=== PATIENT | female | born 1955 | race Caucasian/White ===

== ENCOUNTER 2016-11-27 16:28 | Emergency (ER) | payer OTHER ==
[2016-11-27 18:26] LABS: BASOPHIL % 0.4 % (0-2); PLATELET COUNT 213 x10^3mcL (130-400); RED CELL DISTRIBUTION WIDTH 14.1 % (11.5-14.5)
[2016-11-27 18:28] LABS: CALCIUM 8.9 mg/dL (8.5-10.1); CARBON DIOXIDE 27.2 mmol/L (21-32); CREATININE SERUM 1.2 mg/dL (0.6-1.0); POTASSIUM SERUM 4.1 mmol/L (3.5-5.1)
[2016-11-27 18:33] LABS: ALBUMIN 3.8 g/dL (3.4-5.0); BILIRUBIN TOTAL 0.2 mg/dL (0.20-1.00); TOTAL PROTEIN, SERUM 7.5 g/dL (6.4-8.2)
[2016-11-27 20:53] VITALS: BP 125/77
== END 2016-11-27 20:53 | disposition home or self-care (01) ==
LOC: ED 16:28
DX: S29.011A Strain of muscle and tendon of front wall of thorax, initial encounter (principal); M94.0 Chondrocostal junction syndrome [Tietze]; Z85.3 Personal history of malignant neoplasm of breast; Z90.12 Acquired absence of left breast and nipple; X58.XXXA Exposure to other specified factors, initial encounter; Y93.89 Activity, other specified; Y99.8 Other external cause status; Y92.89 Other specified places as the place of occurrence of the external cause
CPT/HCPCS: 36415; 83880; J1885

== ENCOUNTER 2017-05-19 18:16 | Emergency (ER) | payer OTHER ==
[~2017-05-19] VITALS: Ht 165.1 cm; Wt 69.8 kg
[2017-05-19 18:35] VITALS: Ht 165.1 cm; Wt 69.8 kg
[2017-05-19 20:33] VITALS: BP 106/64
== END 2017-05-19 20:41 | disposition home or self-care (01) ==
LOC: ED 18:16
DX: G47.00 Insomnia, unspecified (principal); F43.20 Adjustment disorder, unspecified

== ENCOUNTER 2017-06-11 00:07 | Inpatient (IN) | payer OTHER ==
[~2017-06-11] VITALS: Ht 152.4 cm; Wt 70.2 kg
[2017-06-11 02:15] LABS: BASOPHIL % 0.2 % (0-2); PLATELET COUNT 153 x10^3mcL (130-400)
[2017-06-11 02:17] LABS: CALCIUM 8.3 mg/dL (8.5-10.1); CHLORIDE SERUM 109 mmol/L (98-107); CREATININE SERUM 1.2 mg/dL (0.6-1.0); GFR1 49 mL/min; GLUCOSE SERUM 148 mg/dL (74-106); POTASSIUM SERUM 3.7 mmol/L (3.5-5.1); SODIUM SERUM 141 mmol/L (136-145)
[2017-06-11 02:22] LABS: ALKALINE PHOSPHATASE 65 U/L (46-116); ALT/SGPT 8 U/L (14-59); AST/SGOT 10 U/L (15-37); BILIRUBIN TOTAL 0.45 mg/dL (0.20-1.00)
[2017-06-11 02:29] LABS: ALBUMIN 2.8 g/dL (3.4-5.0); TOTAL PROTEIN, SERUM 5.8 g/dL (6.4-8.2)
[2017-06-11] MEDS ORDERED: XARELTO10 M1 PO (02:52)
[2017-06-11] MEDS ORDERED: ANASTROZOLE1 M1 PO (02:53)
[2017-06-11] MEDS ORDERED: CARVEDILOL25 M1 PO (02:53)
[2017-06-11] MEDS ORDERED: PAXIL10 MG PO (02:53)
[2017-06-11] MEDS ORDERED: D3-50001 TAB PO (02:53)
[2017-06-11 04:44] LABS: CHOLESTEROL/HDL RATIO 2.8; MAGNESIUM 1.9 mg/dL (1.8-2.4); PHOSPHOROUS 3.4 mg/dL (2.5-4.9)
[2017-06-11 04:52] LABS: FREE T4 1.37 ng/dL (0.76-1.46); FREE THYROXINE INDEX 2.8 ug/dL (1.4-4.5); T4(THYROXINE) 7.2 ug/dL (4.7-13.3)
[2017-06-11 04:55] VITALS: BP 94/50
[2017-06-11 06:42] LABS: T3 TOTAL 0.73 ng/mL
[2017-06-11 07:40] VITALS: BP 85/59
[2017-06-11 07:49] LABS: BASOPHIL % 0.4 % (0-2); PLATELET COUNT 156 x10^3mcL (130-400)
[2017-06-11 07:56] LABS: RED CELL DISTRIBUTION WIDTH 14.7 % (11.5-14.5)
[2017-06-11 08:33] LABS: CALCIUM 8.6 mg/dL (8.5-10.1); CREATININE SERUM 1.2 mg/dL (0.6-1.0); MAGNESIUM 1.9 mg/dL (1.8-2.4); PHOSPHOROUS 2.6 mg/dL (2.5-4.9); POTASSIUM SERUM 3.6 mmol/L (3.5-5.1)
[2017-06-11 12:01] VITALS: BP 93/59
[2017-06-11 17:07] VITALS: BP 92/59
[2017-06-11 19:37] VITALS: BP 70/36
[2017-06-11 23:14] VITALS: BP 96/60
[2017-06-12 03:35] VITALS: BP 78/48
[2017-06-12 05:10] LABS: BASOPHIL % 0.3 % (0-2); PLATELET COUNT 167 x10^3mcL (130-400); RED CELL DISTRIBUTION WIDTH 14.1 % (11.5-14.5)
[2017-06-12 05:36] LABS: CARBON DIOXIDE 24.7 mmol/L (21-32); CREATININE SERUM 1.2 mg/dL (0.6-1.0); MAGNESIUM 1.7 mg/dL (1.8-2.4); PHOSPHOROUS 3.5 mg/dL (2.5-4.9); POTASSIUM SERUM 4.2 mmol/L (3.5-5.1)
[2017-06-12 09:28] VITALS: BP 95/47
[2017-06-12 12:09] VITALS: BP 96/62
[2017-06-12 16:09] VITALS: BP 84/64
[2017-06-12 19:43] VITALS: BP 117/49
[2017-06-12 23:44] VITALS: BP 103/87
[2017-06-13 03:13] VITALS: BP 108/66
[2017-06-13 05:51] LABS: BASOPHIL % 0.4 % (0-2); PLATELET COUNT 154 x10^3mcL (130-400); RED CELL DISTRIBUTION WIDTH 14.3 % (11.5-14.5)
[2017-06-13 06:08] LABS: CALCIUM 7.7 mg/dL (8.5-10.1); CARBON DIOXIDE 25.8 mmol/L (21-32); CREATININE SERUM 1.1 mg/dL (0.6-1.0); POTASSIUM SERUM 4.3 mmol/L (3.5-5.1)
[2017-06-13 09:07] VITALS: BP 91/56
[2017-06-13 14:10] VITALS: BP 100/52
[2017-06-13 17:50] VITALS: BP 99/65
[2017-06-13 20:51] VITALS: BP 95/50
[2017-06-14 04:50] VITALS: BP 82/47
[2017-06-14 05:51] VITALS: BP 95/50
[2017-06-14 05:58] LABS: BASOPHIL % 0.1 % (0-2); PLATELET COUNT 156 x10^3mcL (130-400)
[2017-06-14 07:06] LABS: CARBON DIOXIDE 27.4 mmol/L (21-32); CHLORIDE SERUM 103 mmol/L (98-107); GFR1 > 60 mL/min; GLUCOSE SERUM 98 mg/dL (74-106); MAGNESIUM 1.8 mg/dL (1.8-2.4); PHOSPHOROUS 3.1 mg/dL (2.5-4.9); SODIUM SERUM 139 mmol/L (136-145)
[2017-06-14 09:32] VITALS: BP 92/62
[2017-06-14 13:16] VITALS: BP 127/79
[2017-06-14 15:25] LABS: microscopic required? YES; urine erythrocyte 1+ (NEGATIVE)
[2017-06-14 16:56] VITALS: BP 95/65
[2017-06-14 20:22] VITALS: BP 103/56
[2017-06-15 05:15] VITALS: BP 96/49
[2017-06-15 06:22] LABS: BASOPHIL % 0.4 % (0-2); PLATELET COUNT 151 x10^3mcL (130-400); RED CELL DISTRIBUTION WIDTH 14.1 % (11.5-14.5)
[2017-06-15 06:53] LABS: CALCIUM 8.8 mg/dL (8.5-10.1); CARBON DIOXIDE 29.6 mmol/L (21-32); CHLORIDE SERUM 103 mmol/L (98-107); GFR1 > 60 mL/min; GLUCOSE SERUM 98 mg/dL (74-106); MAGNESIUM 1.8 mg/dL (1.8-2.4); PHOSPHOROUS 3.2 mg/dL (2.5-4.9); POTASSIUM SERUM 4.3 mmol/L (3.5-5.1); SODIUM SERUM 139 mmol/L (136-145)
[2017-06-15 08:53] VITALS: BP 97/53
[2017-06-15] MEDS ORDERED: COR3 PO (09:42)
[2017-06-15] MEDS ORDERED: PAX20 PO (09:43)
[2017-06-15] MEDS ORDERED: LEVAQUIN750 MG PO (09:51)
[2017-06-15 11:56] VITALS: BP 104/77
[2017-06-15 16:35] VITALS: BP 102/64
[2017-06-15 19:24] VITALS: BP 102/64
== END 2017-06-15 20:16 | disposition home or self-care (01) | DRG 917 ==
LOC: ED 00:07 → IC 03:38 → DU 03:38 → IC 04:25 → DU 06-13 08:00
PROVIDERS: Emergency Medicine; Family Medicine; Student in an Organized Health Care Education/Training Program
PROC: 05HP33Z Insertion of Infusion Device into Right External Jugular Vein, Percutaneous Approach (ICD-10-PCS; principal; 2017-06-11)
PROC: B543ZZA Ultrasonography of Right Jugular Veins, Guidance (ICD-10-PCS; 2017-06-11)
DX: T50.992A Poisoning by other drugs, medicaments and biological substances, intentional self-harm, initial encounter (principal); G92 Toxic encephalopathy; E43 Unspecified severe protein-calorie malnutrition; N17.0 Acute kidney failure with tubular necrosis; F33.9 Major depressive disorder, recurrent, unspecified; N13.2 Hydronephrosis with renal and ureteral calculous obstruction; Y92.89 Other specified places as the place of occurrence of the external cause; Z86.73 Personal history of transient ischemic attack (TIA), and cerebral infarction without residual deficits; I48.91 Unspecified atrial fibrillation; I10 Essential (primary) hypertension; Z85.3 Personal history of malignant neoplasm of breast; T14.91XA Suicide attempt, initial encounter; Z68.28 Body mass index [BMI] 28.0-28.9, adult; E83.42 Hypomagnesemia; E66.01 Morbid (severe) obesity due to excess calories
CPT/HCPCS: 36556; 36600; 82962; 83880; 84439; 87491; 87591; 97110-GP; 97116-GP; 97530-GP; G0480; J1160; J1610; J1642; J1815; J1956; J2060; J2270; J2405; J3475; J3490; J7030; J7040; Q0092

== ENCOUNTER 2017-11-16 10:39 | Inpatient (IN) | payer OTHER ==
[~2017-11-16] VITALS: Ht 170.2 cm; Wt 59.9 kg
[~2017-11-16 10:39] MED LIST: ANASTROZOLE1 M1 PO; CARVEDILOL25 M1 PO; COR3 PO; D3-50001 TAB PO; LEVAQUIN750 MG PO; PAX20 PO; PAXIL10 MG PO; XARELTO10 M1 PO
[2017-11-16 11:53] LABS: CALCIUM 8.2 mg/dL (8.5-10.1); CREATININE SERUM 1.2 mg/dL (0.6-1.0); POTASSIUM SERUM 4.2 mmol/L (3.5-5.1)
[2017-11-16 12:05] LABS: FREE T4 1.21 ng/dL (0.76-1.46); TOTAL PROTEIN, SERUM 6.1 g/dL (6.4-8.2)
[2017-11-16 12:18] LABS: PLATELET COUNT 95 x10^3mcL (130-400); RED CELL DISTRIBUTION WIDTH 19.4 % (11.5-14.5)
[2017-11-16 12:20] LABS: ATYPICAL LYMPH 0 %; BAND NEUTROPHIL 0 % (0-10); MONOCYTE 4 % (0-7); SEGMENTED NEUTROPHILS 60 % (37-75)
[2017-11-16 12:21] LABS: BASOPHIL 0 % (0-2); PLATELET MORPHOLOGY PLATELETS DECREASED; burr cell (echinocyte) 2+
[2017-11-16 12:52] LABS: rbc morphology (normal/abnorm) ABNORMAL (NORMAL)
[2017-11-16 12:59] LABS: UA SPECIFIC GRAVITY 1.025 (1.005-1.035); microscopic required? YES; urine erythrocyte TRACE (NEGATIVE)
[2017-11-16 14:18] VITALS: BP 111/60
[2017-11-16 16:19] VITALS: BP 107/77
[2017-11-16 19:30] VITALS: BP 100/64
[2017-11-16 22:58] VITALS: BP 99/72
[2017-11-17] VITALS (16 sets, daily range): BP systolic 78–120; BP diastolic 42–79
[2017-11-17 03:58] LABS: BASOPHIL % 0 % (0-2); PLATELET COUNT 109 x10^3mcL (130-400); RED CELL DISTRIBUTION WIDTH 18.6 % (11.5-14.5)
[2017-11-17 04:08] LABS: BILIRUBIN TOTAL 1.22 mg/dL (0.20-1.00); CALCIUM 8.4 mg/dL (8.5-10.1); CARBON DIOXIDE 14.7 mmol/L (21-32); CREATININE SERUM 1.1 mg/dL (0.6-1.0); MAGNESIUM 1.3 mg/dL (1.8-2.4); POTASSIUM SERUM 3.5 mmol/L (3.5-5.1)
[2017-11-17 04:10] LABS: ALBUMIN 2.7 g/dL (3.4-5.0); TOTAL PROTEIN, SERUM 5.7 g/dL (6.4-8.2)
[2017-11-17] MEDS ORDERED: TRAZODONE50 M1 PO (11:53)
[2017-11-17] MEDS ORDERED: PAROXETINE HCL40 M1 PO (11:55)
[2017-11-18] VITALS (9 sets, daily range): BP systolic 92–141; BP diastolic 43–96; Ht 170.2 cm; Wt 59.9 kg
[2017-11-18 06:05] LABS: PLATELET COUNT 89 x10^3mcL (130-400); RED CELL DISTRIBUTION WIDTH 19.4 % (11.5-14.5)
[2017-11-18 06:12] LABS: BILIRUBIN DIRECT 0.25 mg/dL (0.0-0.2); BILIRUBIN TOTAL 1.07 mg/dL (0.20-1.00); CALCIUM 8.5 mg/dL (8.5-10.1); CARBON DIOXIDE 15.8 mmol/L (21-32); CREATININE SERUM 1.2 mg/dL (0.6-1.0); POTASSIUM SERUM 3.8 mmol/L (3.5-5.1)
[2017-11-18 06:22] LABS: ALBUMIN 2.9 g/dL (3.4-5.0); TOTAL PROTEIN, SERUM 5.9 g/dL (6.4-8.2)
[2017-11-19 04:43] VITALS: BP 110/83
[2017-11-19 07:00] LABS: PLATELET COUNT 94 x10^3mcL (130-400); RED CELL DISTRIBUTION WIDTH 20.4 % (11.5-14.5)
[2017-11-19 07:37] LABS: BAND NEUTROPHIL 1 % (0-10); BASOPHIL 0 % (0-2); MONOCYTE 10 % (0-7); SEGMENTED NEUTROPHILS 68 % (37-75); rbc morphology (normal/abnorm) ABNORMAL (NORMAL)
[2017-11-19 07:39] LABS: burr cell (echinocyte) 1+
[2017-11-19 07:54] LABS: CALCIUM 9.3 mg/dL (8.5-10.1); CARBON DIOXIDE 17.8 mmol/L (21-32); CREATININE SERUM 1.5 mg/dL (0.6-1.0)
[2017-11-19 09:35] VITALS: BP 126/79
[2017-11-19 14:12] VITALS: BP 91/68
[2017-11-19 18:25] VITALS: BP 92/70
[2017-11-19 21:31] VITALS: BP 105/72
[2017-11-20] VITALS (7 sets, daily range): BP systolic 93–131; BP diastolic 66–86
[2017-11-21] VITALS (10 sets, daily range): BP systolic 100–146; BP diastolic 67–107
[2017-11-22] VITALS (8 sets, daily range): BP systolic 96–117; BP diastolic 55–81
[2017-11-22 07:07] LABS: CALCIUM 7.7 mg/dL (8.5-10.1); CARBON DIOXIDE 20.3 mmol/L (21-32); CREATININE SERUM 1.2 mg/dL (0.6-1.0); POTASSIUM SERUM 3.7 mmol/L (3.5-5.1)
[2017-11-22 07:15] LABS: PLATELET COUNT 107 x10^3mcL (130-400); RED CELL DISTRIBUTION WIDTH 19.4 % (11.5-14.5)
[2017-11-22 12:29] LABS: BAND NEUTROPHIL 1 % (0-10); MONOCYTE 11 % (0-7); SEGMENTED NEUTROPHILS 67 % (37-75); target cell (codocyte) 1+
[2017-11-22 12:31] LABS: PLATELET MORPHOLOGY LARGE PLATELET SEEN
[2017-11-22 14:25] LABS: rbc morphology (normal/abnorm) ABNORMAL (NORMAL)
[2017-11-23 05:06] VITALS: BP 98/69
[2017-11-23] MEDS ORDERED: DIG125 PO (10:08)
[2017-11-23] MEDS ORDERED: METOPROLOL TART25 M1 PO (10:09)
[2017-11-23 10:11] VITALS: BP 104/77
[2017-11-23 12:46] VITALS: BP 100/77
[2017-11-23 13:24] VITALS: BP 100/77
[2017-11-23 13:49] VITALS: BP 102/72
[2017-11-23 17:41] VITALS: BP 101/75
== END 2017-11-23 18:07 | disposition home health service (06) | DRG 308 ==
LOC: ED 10:39 → IC 13:26 → DU 13:26 → IC 14:10 → DU 22:39 → IC 11-17 13:40 → DU 11-18 15:38
PROVIDERS: Emergency Medicine; Internal Medicine; Internal Medicine Pulmonary Disease
DX: I48.91 Unspecified atrial fibrillation (principal); J18.9 Pneumonia, unspecified organism; I13.0 Hypertensive heart and chronic kidney disease with heart failure and stage 1 through stage 4 chronic kidney disease, or unspecified chronic kidney disease; R45.851 Suicidal ideations; N39.0 Urinary tract infection, site not specified; Z85.3 Personal history of malignant neoplasm of breast; F32.9 Major depressive disorder, single episode, unspecified; F03.90 Unspecified dementia, unspecified severity, without behavioral disturbance, psychotic disturbance, mood disturbance, and anxiety; Z68.20 Body mass index [BMI] 20.0-20.9, adult; N18.3 Chronic kidney disease, stage 3 (moderate); I50.9 Heart failure, unspecified; Z86.73 Personal history of transient ischemic attack (TIA), and cerebral infarction without residual deficits; Z91.81 History of falling; Z91.19 Patient's noncompliance with other medical treatment and regimen
CPT/HCPCS: 36600; 83880; 84439; 97110-GP; 97116-GP; 97530-GP; 97535-GP; G0480; J0153; J0610; J1160; J1650; J1956; J2060; J2543; J3475; J3490; J7030; J7040; J7050; Q0092

== ENCOUNTER 2018-06-21 19:12 | Inpatient (IN) | payer BC ==
[~2018-06-21] VITALS: Ht 162.6 cm; Wt 35.0 kg
[~2018-06-21 19:12] MED LIST changes: +DIG125 PO; +METOPROLOL TART25 M1 PO; +PAROXETINE HCL40 M1 PO; +TRAZODONE50 M1 PO
[2018-06-21 19:37] VITALS: Ht 162.6 cm; Wt 35.0 kg
[2018-06-21 21:22] LABS: UA SPECIFIC GRAVITY 1.025 (1.005-1.035); microscopic required? YES; urine erythrocyte NEGATIVE (NEGATIVE)
[2018-06-21 21:41] LABS: BASOPHIL % 0.4 % (0-2); PLATELET COUNT 176 x10^3mcL (130-400); RED CELL DISTRIBUTION WIDTH 14.4 % (11.5-14.5)
[2018-06-21 22:28] LABS: ALKALINE PHOSPHATASE 40 U/L (46-116); ALT/SGPT 16 U/L (14-59); BILIRUBIN TOTAL 0.45 mg/dL (0.20-1.00); CARBON DIOXIDE 18.7 mmol/L (21-32); TOTAL PROTEIN, SERUM 7.1 g/dL (6.4-8.2)
[2018-06-21 22:31] LABS: CK-MB 0.6 ng/mL (0-3.6)
[2018-06-21 22:38] LABS: ALBUMIN 2.5 g/dL (3.4-5.0)
[2018-06-21 22:57] LABS: AST/SGOT 25 U/L (15-37); CALCIUM 8.7 mg/dL (8.5-10.1); CHLORIDE SERUM 105 mmol/L (98-107); CREATININE SERUM 0.9 mg/dL (0.6-1.0); GFR1 > 60 mL/min; GLUCOSE SERUM 116 mg/dL (74-106); POTASSIUM SERUM 3.8 mmol/L (3.5-5.1); SODIUM SERUM 137 mmol/L (136-145)
[2018-06-22 01:30] LABS: T3 TOTAL 0.57 ng/mL
[2018-06-22 01:52] LABS: FREE T4 0.97 ng/dL (0.76-1.46); FREE THYROXINE INDEX 2.3 ug/dL (1.4-4.5); T4(THYROXINE) 6.4 ug/dL (4.7-13.3)
[2018-06-22 03:55] VITALS: BP 123/78
[2018-06-22 04:05] LABS: MAGNESIUM 1.8 mg/dL (1.8-2.4); PHOSPHOROUS 1.9 mg/dL (2.5-4.9)
[2018-06-22 06:38] LABS: BASOPHIL % 0.4 % (0-2); PLATELET COUNT 190 x10^3mcL (130-400)
[2018-06-22 06:49] LABS: RED CELL DISTRIBUTION WIDTH 14.9 % (11.5-14.5)
[2018-06-22 07:14] LABS: CALCIUM 8.3 mg/dL (8.5-10.1); CARBON DIOXIDE 24.5 mmol/L (21-32); CHLORIDE SERUM 107 mmol/L (98-107); CREATININE SERUM 0.9 mg/dL (0.6-1.0); GFR1 > 60 mL/min; GLUCOSE SERUM 72 mg/dL (74-106); MAGNESIUM 1.9 mg/dL (1.8-2.4); PHOSPHOROUS 2.1 mg/dL (2.5-4.9); POTASSIUM SERUM 3.4 mmol/L (3.5-5.1); SODIUM SERUM 142 mmol/L (136-145)
[2018-06-22 09:44] VITALS: BP 99/79
[2018-06-22 12:46] VITALS: BP 111/57
[2018-06-22 15:10] VITALS: BP 94/64
[2018-06-22 17:17] VITALS: BP 122/71
[2018-06-22 20:35] VITALS: BP 114/79
[2018-06-23 05:28] VITALS: BP 92/55
[2018-06-23 05:59] LABS: BASOPHIL % 0.4 % (0-2); PLATELET COUNT 154 x10^3mcL (130-400)
[2018-06-23 06:16] LABS: RED CELL DISTRIBUTION WIDTH 15.1 % (11.5-14.5)
[2018-06-23 06:32] LABS: CALCIUM 8.3 mg/dL (8.5-10.1); CARBON DIOXIDE 23.6 mmol/L (21-32); CHLORIDE SERUM 110 mmol/L (98-107); CREATININE SERUM 0.8 mg/dL (0.6-1.0); GFR1 > 60 mL/min; GLUCOSE SERUM 65 mg/dL (74-106); MAGNESIUM 1.8 mg/dL (1.8-2.4); PHOSPHOROUS 1.9 mg/dL (2.5-4.9); POTASSIUM SERUM 3.9 mmol/L (3.5-5.1); SODIUM SERUM 139 mmol/L (136-145)
[2018-06-23 09:43] VITALS: BP 114/81
[2018-06-23 13:00] VITALS: BP 93/63
[2018-06-23 14:32] VITALS: BP 109/61
[2018-06-23 16:30] VITALS: BP 99/64
[2018-06-23 20:21] VITALS: BP 108/73
[2018-06-24 05:45] VITALS: BP 99/68
[2018-06-24 08:27] VITALS: BP 108/59
[2018-06-24 08:31] VITALS: BP 96/63
[2018-06-24 12:18] VITALS: BP 96/66
[2018-06-24 14:14] LABS: BASOPHIL % 0.3 % (0-2); PLATELET COUNT 148 x10^3mcL (130-400); RED CELL DISTRIBUTION WIDTH 14.4 % (11.5-14.5)
[2018-06-24 14:16] LABS: CALCIUM 7.7 mg/dL (8.5-10.1); CARBON DIOXIDE 23.1 mmol/L (21-32); CHLORIDE SERUM 106 mmol/L (98-107); CREATININE SERUM 0.7 mg/dL (0.6-1.0); GFR1 > 60 mL/min; GLUCOSE SERUM 113 mg/dL (74-106); POTASSIUM SERUM 4.2 mmol/L (3.5-5.1); SODIUM SERUM 136 mmol/L (136-145)
[2018-06-24 16:08] VITALS: BP 108/72
[2018-06-24 20:00] VITALS: BP 110/72
[2018-06-25 05:51] VITALS: BP 113/74
[2018-06-25 07:35] LABS: BASOPHIL % 0.4 % (0-2); PLATELET COUNT 136 x10^3mcL (130-400)
[2018-06-25 07:36] LABS: RED CELL DISTRIBUTION WIDTH 14.7 % (11.5-14.5)
[2018-06-25 07:59] VITALS: BP 98/67
[2018-06-25 08:08] LABS: CALCIUM 8.2 mg/dL (8.5-10.1); CARBON DIOXIDE 23.6 mmol/L (21-32); CHLORIDE SERUM 108 mmol/L (98-107); CREATININE SERUM 0.7 mg/dL (0.6-1.0); GFR1 > 60 mL/min; GLUCOSE SERUM 90 mg/dL (74-106); MAGNESIUM 1.9 mg/dL (1.8-2.4); PHOSPHOROUS 2.5 mg/dL (2.5-4.9); POTASSIUM SERUM 4.1 mmol/L (3.5-5.1); SODIUM SERUM 140 mmol/L (136-145)
[2018-06-25 12:14] VITALS: BP 98/70
[2018-06-25 16:30] VITALS: BP 105/68
[2018-06-25 21:35] VITALS: BP 126/66
[2018-06-26 05:16] VITALS: BP 95/63
[2018-06-26 06:45] LABS: CALCIUM 7.6 mg/dL (8.5-10.1); CARBON DIOXIDE 25.6 mmol/L (21-32); CHLORIDE SERUM 109 mmol/L (98-107); CREATININE SERUM 0.7 mg/dL (0.6-1.0); GFR1 > 60 mL/min; GLUCOSE SERUM 86 mg/dL (74-106); MAGNESIUM 1.8 mg/dL (1.8-2.4); PHOSPHOROUS 2.3 mg/dL (2.5-4.9); POTASSIUM SERUM 4.2 mmol/L (3.5-5.1); SODIUM SERUM 141 mmol/L (136-145)
[2018-06-26 07:23] LABS: BASOPHIL % 0.6 % (0-2); PLATELET COUNT 153 x10^3mcL (130-400); RED CELL DISTRIBUTION WIDTH 13.3 % (11.5-14.5)
[2018-06-26 08:42] VITALS: BP 103/68
[2018-06-26 13:18] VITALS: BP 96/63
[2018-06-26 17:22] VITALS: BP 99/66
[2018-06-26 21:26] VITALS: BP 89/56
[2018-06-27 05:01] VITALS: BP 91/62
[2018-06-27 08:50] VITALS: BP 98/64
[2018-06-27 13:15] VITALS: BP 82/51
[2018-06-27 18:10] VITALS: BP 101/65
[2018-06-27 21:13] VITALS: BP 83/53
[2018-06-28 05:58] VITALS: BP 83/56
[2018-06-28 09:32] VITALS: BP 99/65
[2018-06-28 09:34] LABS: CALCIUM 7.7 mg/dL (8.5-10.1); CARBON DIOXIDE 26.4 mmol/L (21-32); CHLORIDE SERUM 112 mmol/L (98-107); CREATININE SERUM 0.8 mg/dL (0.6-1.0); GFR1 > 60 mL/min; GLUCOSE SERUM 98 mg/dL (74-106); POTASSIUM SERUM 3.9 mmol/L (3.5-5.1); SODIUM SERUM 143 mmol/L (136-145)
[2018-06-28 09:54] LABS: BASOPHIL % 0.8 % (0-2); PLATELET COUNT 150 x10^3mcL (130-400)
[2018-06-28 09:59] LABS: RED CELL DISTRIBUTION WIDTH 15.2 % (11.5-14.5)
[2018-06-28 16:16] VITALS: BP 86/54
[2018-06-28 21:38] VITALS: BP 93/51
[2018-06-29] VITALS (8 sets, daily range): BP systolic 85–104; BP diastolic 52–62
[2018-06-30 05:29] VITALS: BP 85/52
[2018-06-30 06:35] LABS: CALCIUM 7.4 mg/dL (8.5-10.1); CARBON DIOXIDE 26.2 mmol/L (21-32); CHLORIDE SERUM 113 mmol/L (98-107); CREATININE SERUM 0.7 mg/dL (0.6-1.0); GFR1 > 60 mL/min; GLUCOSE SERUM 91 mg/dL (74-106); POTASSIUM SERUM 3.9 mmol/L (3.5-5.1); SODIUM SERUM 142 mmol/L (136-145)
[2018-06-30 07:13] VITALS: BP 124/71
[2018-06-30 07:40] LABS: BASOPHIL % 0.5 % (0-2); PLATELET COUNT 147 x10^3mcL (130-400); RED CELL DISTRIBUTION WIDTH 14.4 % (11.5-14.5)
[2018-06-30 08:26] VITALS: BP 112/75
[2018-06-30 12:02] VITALS: BP 98/59
[2018-06-30 16:05] VITALS: BP 99/46
[2018-06-30 21:20] VITALS: BP 92/58
[2018-07-01 05:56] VITALS: BP 90/53
[2018-07-01 08:50] VITALS: BP 94/46
[2018-07-01 12:15] VITALS: BP 96/63
[2018-07-01 16:30] VITALS: BP 95/61
[2018-07-01 22:34] VITALS: BP 100/61
[2018-07-02 04:55] VITALS: BP 112/66
[2018-07-02 08:55] VITALS: BP 99/64
[2018-07-02 12:15] VITALS: BP 103/62
[2018-07-02 17:00] VITALS: BP 103/63
[2018-07-02 20:52] VITALS: BP 112/67
[2018-07-03 05:15] VITALS: BP 97/53
[2018-07-03 05:35] VITALS: BP 113/65
[2018-07-03 10:07] VITALS: BP 102/61
[2018-07-03 13:12] VITALS: BP 94/63
[2018-07-03 18:16] VITALS: BP 97/58
[2018-07-03 21:41] VITALS: BP 96/55
[2018-07-04 05:33] VITALS: BP 122/72
[2018-07-04 10:06] VITALS: BP 111/68
[2018-07-04 13:00] VITALS: BP 102/65
[2018-07-04 15:49] LABS: CALCIUM 6.1 mg/dL (8.5-10.1); CARBON DIOXIDE 22.4 mmol/L (21-32); CHLORIDE SERUM 115 mmol/L (98-107); CREATININE SERUM 0.7 mg/dL (0.6-1.0); GFR1 > 60 mL/min; POTASSIUM SERUM 3.6 mmol/L (3.5-5.1); SODIUM SERUM 144 mmol/L (136-145)
[2018-07-04 15:53] LABS: GLUCOSE SERUM 581 mg/dL (74-106)
[2018-07-04 16:02] LABS: BASOPHIL % 0.5 % (0-2); PLATELET COUNT 172 x10^3mcL (130-400)
[2018-07-04 16:03] LABS: RED CELL DISTRIBUTION WIDTH 17.1 % (11.5-14.5)
[2018-07-04 16:55] VITALS: BP 101/56
[2018-07-04 20:41] VITALS: BP 98/61
[2018-07-05 05:19] VITALS: BP 107/69
[2018-07-05 06:23] LABS: CALCIUM 7.5 mg/dL (8.5-10.1); CARBON DIOXIDE 28.1 mmol/L (21-32); CHLORIDE SERUM 110 mmol/L (98-107); CREATININE SERUM 0.6 mg/dL (0.6-1.0); GFR1 > 60 mL/min; GLUCOSE SERUM 74 mg/dL (74-106); POTASSIUM SERUM 4.5 mmol/L (3.5-5.1); SODIUM SERUM 141 mmol/L (136-145)
[2018-07-05 07:18] LABS: BASOPHIL % 0.8 % (0-2); PLATELET COUNT 175 x10^3mcL (130-400)
[2018-07-05 07:29] LABS: RED CELL DISTRIBUTION WIDTH 18.1 % (11.5-14.5)
[2018-07-05 08:08] VITALS: BP 125/79
[2018-07-05 12:16] VITALS: BP 102/64
[2018-07-05 16:24] VITALS: BP 119/61
[2018-07-05 21:53] VITALS: BP 96/56
[2018-07-06 06:10] VITALS: BP 131/67
[2018-07-06 06:40] LABS: CALCIUM 7.7 mg/dL (8.5-10.1); CARBON DIOXIDE 27.2 mmol/L (21-32); CHLORIDE SERUM 112 mmol/L (98-107); CREATININE SERUM 0.8 mg/dL (0.6-1.0); GFR1 > 60 mL/min; GLUCOSE SERUM 75 mg/dL (74-106); MAGNESIUM 1.8 mg/dL (1.8-2.4); PHOSPHOROUS 2.4 mg/dL (2.5-4.9); POTASSIUM SERUM 4.7 mmol/L (3.5-5.1); SODIUM SERUM 143 mmol/L (136-145)
[2018-07-06 07:38] LABS: BASOPHIL % 0.7 % (0-2); PLATELET COUNT 179 x10^3mcL (130-400)
[2018-07-06 07:43] LABS: RED CELL DISTRIBUTION WIDTH 17.7 % (11.5-14.5)
[2018-07-06 08:59] VITALS: BP 105/68
[2018-07-06 16:39] VITALS: BP 98/58
[2018-07-06 20:54] VITALS: BP 100/63
[2018-07-07 05:53] VITALS: BP 102/60
[2018-07-07 07:09] LABS: CALCIUM 7.9 mg/dL (8.5-10.1); CARBON DIOXIDE 26.7 mmol/L (21-32); CHLORIDE SERUM 109 mmol/L (98-107); CREATININE SERUM 0.8 mg/dL (0.6-1.0); GFR1 > 60 mL/min; GLUCOSE SERUM 77 mg/dL (74-106); MAGNESIUM 1.8 mg/dL (1.8-2.4); PHOSPHOROUS 3.8 mg/dL (2.5-4.9); POTASSIUM SERUM 4.4 mmol/L (3.5-5.1); SODIUM SERUM 140 mmol/L (136-145)
[2018-07-07 07:43] LABS: BASOPHIL % 0.7 % (0-2); PLATELET COUNT 192 x10^3mcL (130-400); RED CELL DISTRIBUTION WIDTH 18.3 % (11.5-14.5)
[2018-07-07 08:30] VITALS: BP 104/64
[2018-07-07 16:55] VITALS: BP 102/64
[2018-07-07 20:45] VITALS: BP 105/66
[2018-07-08 06:07] VITALS: BP 103/62
[2018-07-08 08:35] VITALS: BP 117/75
[2018-07-08] MEDS ORDERED: AMIODARONE HCL200 MG PO (10:10)
[2018-07-08] MEDS ORDERED: TRAZODONE50 M1 PO (10:11)
[2018-07-08] MEDS ORDERED: REM15 PO (10:11)
[2018-07-08 12:24] VITALS: BP 105/64
[2018-07-08 13:05] VITALS: BP 105/64
== END 2018-07-08 14:37 | disposition home health service (06) | DRG 391 ==
LOC: ED 19:12 → DU 06-22 02:44 → MU 06-27 10:07 → DU 06-28 07:40 → MU 07-05 09:00
PROVIDERS: General Practice; Specialist; ADMIT Internal Medicine
DX: K52.9 Noninfective gastroenteritis and colitis, unspecified (principal); N17.0 Acute kidney failure with tubular necrosis; E43 Unspecified severe protein-calorie malnutrition; N39.0 Urinary tract infection, site not specified; Z68.1 Body mass index [BMI] 19.9 or less, adult; F33.2 Major depressive disorder, recurrent severe without psychotic features; R62.7 Adult failure to thrive; I10 Essential (primary) hypertension; I48.2 Chronic atrial fibrillation; F41.9 Anxiety disorder, unspecified; Z86.73 Personal history of transient ischemic attack (TIA), and cerebral infarction without residual deficits; Z85.3 Personal history of malignant neoplasm of breast; Z90.12 Acquired absence of left breast and nipple; Z92.21 Personal history of antineoplastic chemotherapy; Z82.49 Family history of ischemic heart disease and other diseases of the circulatory system
CPT/HCPCS: 36600; 82962; 84439; 87046; 87046-59; 87804; 92526-GN; 92610; 97110-GP; 97116-GP; 97530-GP; J0610; J0696; J1644; J1940; J2060; J3475; J3490; J7030; J7042; J7131

== ENCOUNTER 2019-11-20 14:39 | Inpatient (IN) | payer OTHER ==
[~2019-11-20] VITALS: Ht 162.6 cm; Wt 54.4 kg
[~2019-11-20 14:39] MED LIST changes: +AMIODARONE HCL200 MG PO; +REM15 PO
[2019-11-20 15:00] VITALS: Ht 162.6 cm; Wt 54.4 kg
--- NOTE | 2019-11-20 15:06 | NUR ---
BROUGHT IN BY AMBULANCE, AWAKE ALERT, SPEAKS HEBREW ONLY ,PER PARAMEDICS PT C/O GENERALIZED WEAKNESS,POOR APPETITE,, HAD CVA ONE MONTH AGO, ON ARRIVAL CARDIOLOGY FELLOW IN UNCONTROLLED AF WITH RVR 124/MOINYUTE
[2019-11-20 16:09] LABS: BASOPHIL % 0.4 % (0-2); PLATELET COUNT 252 x10^3mcL (130-400)
--- NOTE | 2019-11-20 16:13 | NUR ---
SPMNAISH SPEEKING PT KEEPS ATTEMPTING TO TELL ME SOMETHING BUT TELLING PT UNABLE TO UNDERSTAND GREENLANDIC. REPOSITIONED HIGH FOWLERS, RESP EXCURSION AND TIDAL VOLUME LOW WITH SOME ADVENTICIOUS UPPR RESP SOUNDS TO ASCULTATION. SKIN APPEARS PALE / SLIGHTLY RO ASSUME PART OF CURRENT PRESENTATION.
[2019-11-20 16:17] LABS: RED CELL DISTRIBUTION WIDTH 16.8 % (11.5-14.5)
--- NOTE | 2019-11-20 16:24 | NUR ---
SPOKE TO ED MD- VITAL SIGNS NOTED- HOLD CAREDIZEM. PT HAD TO BE REPOSITIONED, NOT ABLE OR NOT WANTING TO ASSIST IN SITTING UP. DIFFICULTY MAINTAING SAO2 WAVE FORM, NOTED AT 96.
[2019-11-20 16:38] LABS: CALCIUM 8.8 mg/dL (8.5-10.1); CARBON DIOXIDE 22.7 mmol/L (21-32); CHLORIDE SERUM 108 mmol/L (98-107); CREATININE SERUM 1.3 mg/dL (0.6-1.0); GFR1 44 mL/min; GLUCOSE SERUM 79 mg/dL (74-106); POTASSIUM SERUM 3.9 mmol/L (3.5-5.1); SODIUM SERUM 145 mmol/L (136-145)
[2019-11-20 16:50] LABS: ALBUMIN 3.8 g/dL (3.4-5.0); ALKALINE PHOSPHATASE 73 U/L (46-116); ALT/SGPT 19 U/L (14-59); AST/SGOT 14 U/L (15-37); BILIRUBIN TOTAL 0.89 mg/dL (0.20-1.00); CHOLESTEROL 188 mg/dL (<200); LIPASE 146 IU/L (73-393); MAGNESIUM 2.2 mg/dL (1.8-2.4); T4(THYROXINE) 9.6 ug/dL (4.7-13.3); TOTAL PROTEIN, SERUM 7.4 g/dL (6.4-8.2)
[2019-11-20 16:56] LABS: HDL CHOLESTEROL 84 mg/dL (40-60)
--- NOTE | 2019-11-20 17:21 | NUR ---
PT REFUST TO ALLOW MALE RN TO PERFORM ALAN CATH. RN Roxie STEPPED IN TO PERFORM PROCEDURE.
--- NOTE | 2019-11-20 18:08 | NUR ---
PER DR PRESSLEY, [facility]
[2019-11-20 18:12] LABS: microscopic required? YES; urine erythrocyte TRACE (NEGATIVE)
[2019-11-20 18:21] LABS: AMPHETAMINE QUAL UR NONE DETECTED (See below)
--- NOTE | 2019-11-20 18:47 | NUR ---
READY FOR RE-EVAL. PT C/O UPPER CHEST AND LOWER ABD C/O. UNABLE TO RATE PAIN. NOTED PRIOR, MALAY SPEEKING.
--- NOTE | 2019-11-20 19:27 | NUR ---
RECEIVED REPORT FROM NAYAN MARTINEZ TO ASSUME PT CARE. PT NOTED RESTING IN BED IN A POSITION OF COMFORT. BREATHING E/U, NO S/S OF DISTRESS NOTED. PT IN FULL VIEW OF NURSES STATION AND REMAINS ON QA AUTOMATION DEVELOPER.
--- NOTE | 2019-11-20 19:32 | NUR ---
REPORT TO PM NAYAN FLORENCE TO RE-EVAL FOR DISPO
--- NOTE | 2019-11-20 20:11 | NUR ---
REPORT GIVEN TO NAYAN MCCARTNEY TO ASSUME PT CARE. PT TO BE TRANSFERED TO 244
--- NOTE | 2019-11-20 20:23 | NUR ---
PT OFF FLOOR VIA GURNEY BY BERYL DARLING AND PHYLLIS RN. PT ON FULL H[employer] MUSIC DIRECTOR DURING TRANSPORT. PT AWAKE AND ALERT.
--- NOTE | 2019-11-20 20:30 | NUR ---
[facility] BY NAYAN FERGUSON AND LISSET EMT. PT AWAKE AND ALERT, BREATHING E/U, NO S/S OF DISTRESS NOTED. PT REMAINS ON FULL COW BUYER DURING TRANSPORT. NAYAN MCCARTNEY AT BEDSIDE TO ASSUME PT CARE.
[2019-11-20 21:02] VITALS: BP 110/73
--- NOTE | 2019-11-20 21:30 | NUR ---
RECEIVED PATIENT IN BED, CONFUSED AND DISORIENTED, TELE #18 NOTED AFIB WITH HR 93 NOTED. PT LEBANESE SPEAKING NOTED. ASKING FOR FAMILY, RE-ORIENTED. CALL LIGHT WITHIN REACH. SHERRILL RN RESUME CARE.
--- NOTE | 2019-11-21 05:00 | NUR ---
PT SLEPT WELL ALL NIGHT.BREATHING EASY AND NON-LABORED.DENIES ANY PAIN ALL NIGHT.F/C TO CHEMA COLORED URINE.EMPTIED 1500ML LAST NIGHT.ALL NEEDS MET.WILL CONTINUE TO MONITOR.
--- NOTE | 2019-11-21 05:02 | NUR ---
BP THIS AM REPORTED @ 88/67 [facility]DR. CALDERA PAGED.WILL MONITOR.
[2019-11-21 05:39] VITALS: BP 112/61
--- NOTE | 2019-11-21 05:40 | NUR ---
BP RECHECKED WHEN FULLY AWAKE @ 112/61 [facility],HR 75.DENIES CHESTPAIN.IN NO DISTRESS.
[2019-11-21 07:40] LABS: BASOPHIL % 0.7 % (0-2); PLATELET COUNT 226 x10^3mcL (130-400)
--- NOTE | 2019-11-21 07:40 | NUR ---
RECEIVED PT FROM CONTACT CENTER DIRECTOR RN. A/OX2, PERSON/PLACE, CONFUSED AND FORGETFUL, PT REPETITIVE. TELE#18. DENIES CHEST PAIN/PRESSURE. RESPIRATIONS EQUAL AND UNLABORED ON RA. DENIES ANY SOB. PT HAS POOR PO INTAKE, ENCOURAGED PT TO EAT BREAKFAST, PT REFUSING WAS ABLE TO EAT SMALL AMOUNTS OF APPLE SAUCE. NO S/S OF N/V OR ABDOMINAL PAIN NOTED. IV TO RAC SECURED AND INTACT. WILL CONTINUE TO MONITOR. CALL LIGHT IN REACH. BED IN LOWEST POSITION.
[2019-11-21 07:51] LABS: CALCIUM 8.5 mg/dL (8.5-10.1); CARBON DIOXIDE 23.1 mmol/L (21-32); CREATININE SERUM 1.1 mg/dL (0.6-1.0); MAGNESIUM 2.1 mg/dL (1.8-2.4); PHOSPHOROUS 3.6 mg/dL (2.5-4.9)
[2019-11-21 07:57] LABS: RED CELL DISTRIBUTION WIDTH 16.7 % (11.5-14.5)
--- NOTE | 2019-11-21 08:32 | NUR ---
PAGED DR. DAMON REGARDING CRITICAL GLUCOSE OF 54, AWAITING CALL BACK.
[2019-11-21 10:04] VITALS: BP 112/67
--- NOTE | 2019-11-21 10:28 | NUR ---
ELIQUIS NOT AVAILABLE IN [place]. CALLED PHARMACY AWAITING TO BE BROUGHT UP.
--- NOTE | 2019-11-21 11:56 | NUR ---
CALLED DR. DAMON REGARDING ORDER FOR D5W, ASKED DR. DAMON TO CLARIFY RATE, PER DR. DAMON WILL PUT IN RATE.
[2019-11-21 12:50] VITALS: BP 100/59
[2019-11-21 16:20] VITALS: BP 111/77
--- NOTE | 2019-11-21 20:00 | NUR ---
PT STABLE IN BED. PT AAOX2. PT VERY FORGETFUL. PT REFUSES ALL NIGHT MEDS. NO DISTRESS NOTED. PT DENIES PAIN. ALAN TO GRAVITY.
[2019-11-21 21:26] VITALS: BP 86/56
[2019-11-22 05:48] VITALS: BP 101/67
--- NOTE | 2019-11-22 06:52 | NUR ---
PT STABLE THROUGHOUT SHIFT. PT VOIDED VIA ALAN 400ML CLEAR CHEMA URINE. PT REFUSES TO TAKE MEDS. NO DISTRESS NOTED. PT REFUSES TO EAT. IVF INFUSING.
--- NOTE | 2019-11-22 08:00 | NUR ---
RECEIVED PATIETNT HAVING AND ECHO AT THIS TIME AND REFUSED HER MEDICATIONS AND HER DIET ALREADY AND HAS BEEN INTERMITTANTLY ANXIOUS AND CONFUSED. SHE HAS NO COMPLAINTS OF PAIN. LUNGS ARE DIMINISHED AND BOWEL SDOUND HYPACTIVE AND FLAT. SHE HAS SOME TRACE EDEMA TO HE LOWER EXTREMITES AND HAS VITALS AT THIS TIME AT 97.9, 78, 18, 101/67, 97% ON ROOM AIR. DUE TO HER REFUSAL OF LABS AND HER REFUSAL FOR MEDICATION SHE HAS BEEN ONLY ON DSW AT 50CC PER HOUR. SHE HAS A FIB THE MONITOR AND HISTORY OF BREAST CANCER, CVA ANXIETY, MASECTOMY, AND DEPRESSION. PULSES WEAK TO THE LOWER EXTREMTIES AND PATIENT HAS NO COMPLAINTS OF PAIN AT THIS TIME. ALAN TO GRAVITY AND URINE IS CHEMA IN COLOR.
[2019-11-22 09:00] VITALS: BP 94/50
[2019-11-22 09:07] LABS: BASOPHIL % 0.3 % (0-2); PLATELET COUNT 222 x10^3mcL (130-400); RED CELL DISTRIBUTION WIDTH 16.6 % (11.5-14.5)
[2019-11-22 09:55] LABS: CALCIUM 8.2 mg/dL (8.5-10.1); CARBON DIOXIDE 24.6 mmol/L (21-32); CREATININE SERUM 1.1 mg/dL (0.6-1.0); POTASSIUM SERUM 3.5 mmol/L (3.5-5.1)
[2019-11-22 13:17] VITALS: BP 104/58
--- NOTE | 2019-11-22 13:31 | NUR ---
PATIENT IS CONFUSED AND STILL RESISTANT TO TAKING MEDICATIONS OR DIET.
--- NOTE | 2019-11-22 15:59 | NUR ---
PATIENT CONFUSED AND WAS A BIT FRIGHTENED BY THE ROOMMATE THAT WAS BEING AGREESIVE WITH STAFF. SHE HAS BEEN REFUSING MOST OF THE CARE OFFERED. SHE DOES NOT WANT TO TAKEHER MEDICATIONS AND SO FAR ONLY IV FLUIDS ARE BEING INSTILLED. POOR INTAKE OF DIET WELL. SPAINISH SPEAKING ONLY AND SEEMS OBSESSED WITH THINGS LIGH THE LIGHT COMING AROUND THE WINDOW SHADE OR HER GOWN NOT HAVEING ALL THE TIES TIED. IT MAY SBE SHE IS VERY SHY AND PRIVATE BUT SHE DOES NOT SAY OUTRIGHT. CONTINUE TO ENCOURAGE SAFETY AND WILL CONNU TO ATTMEPT TO GT HER TO TAKE THE INDICATED MEDICAIONS ORDERED. SHE IS IN NO ACUTE DISTRESS AT THIS TIME.
[2019-11-22 17:00] VITALS: BP 122/75
--- NOTE | 2019-11-22 17:39 | NUR ---
STILL VERY CONFUSED AND HAS BEEN TAKING IN ONLY A LITTLE OF THE DIET OFFERED. STAFF ENCOURAGE TO EAT AND DRINK AND TAKE IN MEDICATIONS OFFERED. WILL CONINUE TO MONITOR INDICATEDD.
--- NOTE | 2019-11-22 19:30 | NUR ---
RECEIVED PT FROM DAYSNHFT NURSE. PT IS AAOX2, HAS EPISODES OF CONFUSION AND TENSE MOOD. PT HAS NEW TRANSFER ORDERS FOR MED SURG, DENIES CHEST PAIN AT THIS TIME. PULSES ARE EQUAL BILATERALLY, NO EDEMA NOTED. PT IS CTA, ON RA, DENIES SOB AT THIS TIME. ABDOMEN IS SOFT AND ROUND, NO PAIN UPON PALPATION. PT HAS ALAN CATHETER IN PLACE, CHEMA DARK URINE. PT HAS GENERALIZED WEAKNESS, BEDFAST AT THIS TIME, AMBULATORY AT BASELINE. SKIN IS DRY AND INTACT, NO LESIONS NOTED. PT HAS D5W 50 ML/HR RUNNING, LFA 22G. IV SITE IS PATENT, NO REDNESS OR SWELLING NOTED. PT IS CALM AND COOPERATIVE. ALL COMFORT CARE ACCOUNTED FOR AT THIS TIME. BED IN LOWEST POSITION, CALL LIGHT WITHIN REACH. WILL CONTINUE TO MONITOR.
[2019-11-22 21:36] VITALS: BP 115/72
--- NOTE | 2019-11-22 22:23 | NUR ---
DISCUSSED WITH PATIENT THE IMPORTANCE OF TAKING HER MEDICATIONS AND HAVING AN ADEQUATE NUTRITION. SPOKE TO PATIENT'S DAUGHTER BEFORE MED PASS PATIENT WAS REFUSING MEDICATIONA AND WANTED TO GO HOME. AFTER FURTHER DISCUSSION PATIENT AGREED TO TAKE MEDICATION, BUT AT THIS TIME IT WAS AFTER THE TIME OF MEDICATION PASS. MEDICATION WAS STILL ADMINISTERED. ALL COMFORT CARE ACCOUNTED FOR AT THIS TIME. BED IN LOWEST POSITION, CALL LIGHT WITHIN REACH. WILL CONTINUE TO MONITOR.
--- NOTE | 2019-11-23 00:38 | NUR ---
COMMUNICATED WITH DOCTOR REGARDING BEING OUT D5W BAGS, ONLY HAVE 250ML BAGS LEFT. CURRENT BAG RAN OUT. DOCTOR LET ME KNOW SHE WILL NOTIFY ME REGARDING DECISION. ALL COMFORT CARE ACCOUNTED FOR AT THIS TIME. BED IN LOWEST POSITON, CALL LIGHT WITHIN REACH. WILL CONTINUE TO MONITOR.
--- NOTE | 2019-11-23 05:28 | NUR ---
PATIENT RESTED INTERMITTENTLY THROUGHOUT THE NIGHT WITH EYES CLOSED. DURING BEGINNING OF SHIFT PATIENT HAD TENSE MOOD WITH HIGH ANXIETY, PATIENT DID NOT WANT TO TAKE MEDICATIONS. HAD TO SPEAK TO PATIENTS DAUGHTER AND GO BACK AND FORTH BETWEEN HER AND FAMILY REGARDING IMPORTANCE OF MEDICATION AND NUTRITION. PATIENT FINALLY STATED IT WAS OKAY TO TAKE MEDICATIONS, I WAS ALSO ABLE TO GIVE HER SOME APPLE SAUCE, NUTRITION REMAINS POOR. SPOKE TO DOCTORS REGARDING PYXIS HAVING BACK ORDER OF D5W, PATIENT FINISHED BAG THAT WAS STARTED DURING DAYSHIFT. PATIENT HAD ABOUT 3 HOURS OF NO FLUIDS UNTIL DOCTOR PUT IN NEW ORDER OF D5NACL. PATIENT REMAINS COVERED HEAD TO TOE WITH BLANKET, BECOMES ANXIOUS WHEN APPROACHED. ALL COMFORT CARE ACCOUNTED FOR AT THIS TIME. BED IN LOWEST POSITION, CALL LIGHT WITHIN REACH.
[2019-11-23 06:02] VITALS: BP 108/68
--- NOTE | 2019-11-23 07:21 | NUR ---
ENDORSED ALL CARE TO DAYSHIFT NURSE. ALL QUESTIONS/CONCERNS ADDRESSED.
--- NOTE | 2019-11-23 07:25 | NUR ---
RECEIVED PT. IN BED AWAKE AND ALERT. PT. IS ONLY ORIENTED TO PERSON AND PLACE. NO SOB, NO N/V NOTED. PT. DENIES ANY PAIN AT THIS TIME. D5NS RUNNING AT 50 CC/HR VIA IV SITE AT L FA. F/C DRAINING CHEMA URINE. BED IN LOW POS., CALL LIGHT WITHIN REACH. SIDE RAILS UP X3.
--- NOTE | 2019-11-23 09:00 | NUR ---
PT. IS ON BLADDER TRAINNING. F/C CLAMPED AT THIS TIME.
[2019-11-23 09:15] VITALS: BP 114/82
[2019-11-23] MEDS ORDERED: ELIQUIS5 MG PO (11:46)
[2019-11-23] MEDS ORDERED: METOPROLOL TART25 M1 PO (11:46)
[2019-11-23] MEDS ORDERED: MEGESTROL AC40 MG/ML PO (11:47)
--- NOTE | 2019-11-23 13:10 | NUR ---
NEW IV SITE RESTARTED AT L HAND WITH GAUGE #22 DUE TO INFILTRATION OF OLD IV SITE.
[2019-11-23 13:45] VITALS: BP 100/65
[2019-11-23 17:40] VITALS: BP 95/61
--- NOTE | 2019-11-23 17:55 | NUR ---
NASOPHARYNGEAL SWAB OBTAINED AND SENT TO LAB FOR COVID-19 TEST.
--- NOTE | 2019-11-23 19:35 | NUR ---
RECEIVED PT FROM DAYSPRFT NURSE. PT IS AAOX2, PERSON AND PLACE, DENIES HEADACHE/DIZZINESS/NAUSEA. PT IS MED SURG PATIENT, DENIES CHEST PAIN AT THIS TIME. PULSES ARE EQUAL BILATERALLY, ON ELIQUIS PO PROPHYLAXIS. PT IS CTA, ON RA, DENIES SOB AT THIS TIME. ABDOMEN IS SOFT AND ROUND, NO PAIN UPON PALPATION. NORMOACTIVE X4 QUADRANTS, LAST BM 11/22. PT HAS ALAN CATHETER IN PLACE, CHEMA IN COLOR. PT HAS GENERALIZED WEAKNESS, BEDFAST AT THIS TIME. SKIN IS DRY AND INTACT, NO LESIONS NOTED. IV IS TO LEFT HAND, 22 GAUGE. IV SITE IS PATENT, NO REDNESS OR SWELLING AT THIS TIME. ALL COMFORT CARE ACCOUNTED FOR AT THIS TIME. PT HAS HX OF DEPRESSION AND ANXIETY, TENSE MOOD AT TIMES. BED IN LOWEST POSITION, CALL LIGHT WITHIN REACH. WILL CONTINUE TO MONITOR.
[2019-11-23 21:25] VITALS: BP 97/67
--- NOTE | 2019-11-24 01:24 | NUR ---
PATIENT RESTING IN BED WITH NO ACUTE DISTRESS. PATIENT ACCEPTED ALL MEDICATIONS EARLIER DURING MED PASS. PATIENT DENIES SOB/CHEST PAIN. ALL COMFORT CARE ACCOUNTED FOR AT THIS TIME. BED IN LOWEST POSITION, CALL LIGHT WITHIN REACH.
[2019-11-24 05:12] VITALS: BP 120/62
--- NOTE | 2019-11-24 05:34 | NUR ---
PATIENT RESTED INTERMITTENTLY THROUGHOUT THE NIGHT WITH EYES CLOSED. PATIENT DENIES SOB/CHEST PAIN. NO ACUTE DISTRESS NOTED, NO ACUTE CHANGES IN PATIENT'S STATUS. ALL COMFORT CARE ACCOUNTED FOR AT THIS TIME. BED IN LOWEST POSITION, CALL LIGHT WITHIN REACH. WILL CONTINUE TO MONITOR UNTIL APPROPRIATE TO ENDORSE TO DAYSHIFT NURSE.
--- NOTE | 2019-11-24 07:20 | NUR ---
ENDORSED CARE TO DAYSHIFT NURSE. ALL QUESTIONS/CONCERNS ADDRESSED.
[2019-11-24 09:19] VITALS: BP 94/65
[2019-11-24 12:52] VITALS: BP 118/65
--- NOTE | 2019-11-24 15:04 | NUR ---
PHYSICAL THERAPY NOTE ATTEMPTED FOR SCHEDULED PHYSICAL THERAPY TX SESSION, Pt REFUSED STATING SHE DOESN'T FEEL LIKE GETTING UP TODAY.
[2019-11-24 17:16] VITALS: BP 92/54
--- NOTE | 2019-11-24 19:35 | NUR ---
RECEIVED PT LYING IN BED, ALERT, AWAKE AND ORIENTED TO PERSON AND BIRTHDATE ONLY. ABLE TO FOLLOW SIMPLE COMMANDS. NO SOB NOTED, LUNG SOUNDS DIMINISHED ON THE BASES. DENIES CHEST PAIN/PRESSURE. DENIES ABDOMINAL DISCOMFORT. ABDOMEN IS SOFT. W/ BARBADIAN 16 ALAN CATHETER DRAINING W/ DARK YELLOW COLORED URINE. SKIN IS DRY AND INTACT. SIDE RAILS UPX2. CALL LIGHT ON REACH. BED ON THE LOWEST POSITION. BED ALARM ON. WILL CONT TO MONITOR
[2019-11-24 20:43] VITALS: BP 100/71
--- NOTE | 2019-11-24 21:56 | NUR ---
ENDORSED TO SAMANTHA FOR CONTINUITY OF CARE
--- NOTE | 2019-11-24 22:03 | NUR ---
AWAKE, CONFUSED. HOB ELEVATED 30 DEG. BREATHING EVEN AND UNLABORED ON ROOM AIR. IVF OF D5NS AT 50ML/HR. ALAN CATH DRAINING DARK YELLOW URINE. CALL LIGHT WITHIN EASY REACH. BED ALARM ON. BED IN LOWEST POSITION.
--- NOTE | 2019-11-24 22:06 | NUR ---
ASSUMED CARE FROM NURSE GONZALEZ
--- NOTE | 2019-11-25 00:09 | NUR ---
EYES CLOSED, BREATHING EVEN AND UNLABORED. CALL LIGHT WITHIN EASY REACH. BED ALARM ON.
--- NOTE | 2019-11-25 01:39 | NUR ---
EYES CLOSED, BREATHING EVEN AND UNLABORED. LYING ON HER LEFT SIDE. CALL LIGHT WITHIN EASY REACH. BED ALARM ON, BED IN LOWEST POSITION.
--- NOTE | 2019-11-25 04:36 | NUR ---
DRAINED 200ML OF DARK YELLOW URINE FROM ALAN CATH. NURSE IRAIDA USED BLADDER SCAN TO SCAN BLADDER, MINIMAL VOLUME IN BLADDER. PT PREFERRED FEMALE NURSE TO SCAN BLADDER. PT AWAKE, ORIENTED TO NAME. BREATHING EVEN AND UNLABORED ON ROOM AIR. BED ALARM ON, CALL LIGHT WITHIN EASY REACH. REORIENTED TO HOSPITAL ENVIRONMENT.
[2019-11-25 05:54] VITALS: BP 91/64
--- NOTE | 2019-11-25 06:38 | NUR ---
EYES CLOSED, BREATHING EVEN AND UNLABORED ON ROOM AIR. BED ALARM ON. CALL LIGHT WITHIN EASY REACH.
--- NOTE | 2019-11-25 06:42 | NUR ---
PAGED NIGHT RESIDENT DR. ARCE REGARDING URINE OUTPUT OF 200ML PM SHIFT.
--- NOTE | 2019-11-25 07:11 | NUR ---
EYES CLOSED, BREATHING EVEN AND UNLABORED. IN NO ACUTE DISTRESS. ENDORSED TO REGISTRY NURSE RUBEN
--- NOTE | 2019-11-25 08:00 | NUR ---
SLEEPING BUT EASILY AROUSABLE TO LIGHT TOUCH; NO SOB AT RM AIR; DENIES PAIN AT THIS TIME; D5NS INFUSING AT 50 ML/HR. LH SITE PATENT AND WITHOUT INFILTRATION; GENERALIZED WEAKNESS; ALAN TO GRAVITY; FALL AND SAFETY PRECAUTION REINFORCED; WILL CONTINUE TO MONITOR STATUS. NSG ASSESSMENT DONE.
[2019-11-25 09:14] VITALS: BP 97/61
[2019-11-25 09:47] LABS: BASOPHIL % 0.6 % (0-2); PLATELET COUNT 191 x10^3mcL (130-400)
[2019-11-25 09:55] LABS: RED CELL DISTRIBUTION WIDTH 16.4 % (11.5-14.5)
[2019-11-25 10:23] LABS: CALCIUM 7.7 mg/dL (8.5-10.1); CARBON DIOXIDE 23.8 mmol/L (21-32); POTASSIUM SERUM 3.4 mmol/L (3.5-5.1)
--- NOTE | 2019-11-25 12:12 | NUR ---
HILTON KILGORE, IS AWARE OF POTASSIUM 3.4. SHE GAVE VERBAL ORDER OF POTASSIUM 40 MEQ PO ONCE. WILL CONTINUE TO MONITOR STATUS.
--- NOTE | 2019-11-25 13:00 | NUR ---
NO NEW ACUTE CHANGES IN STATUS. NO SOB AT RM AIR; DENIES PAIN
--- NOTE | 2019-11-25 16:15 | NUR ---
REPORT GIVEN GEETHA AT [facility]. PT IS GOING TO RM 17. CANELO, MEDICATION MANAGER, CALLED TO INFORM THAT HE IS GETTING AUTHORIZATION FOR TRANSPORTATION AND WILL CALL THE UNIT FOR THE EXACT TIME.
[2019-11-25 16:29] VITALS: BP 110/69
--- NOTE | 2019-11-25 17:07 | NUR ---
TELEPHONE CONSENT OBTAINED FROM DAUGHTER COCO REGARDING PT TRANSFER ACKNOWLEDGEMENT; COSIGNED BY NAYAN ALY.
--- NOTE | 2019-11-25 17:16 | NUR ---
MARTHA, WARE SERVER, PARDO TO INFORM THAT TRANSPORTATION HAS BEEN ARRANGED WITH LC AND THE INFORMATION SECURITY DIRECTOR TIME TO [facility] IS BETWEEN 18:30 TO 19:30 AND BY NANO.
--- NOTE | 2019-11-25 17:52 | NUR ---
DAUGHTER COCO IS MADE AWARE OF THE INSIDE SALES PERSON TIME; IVF SITE ON THE LH REMOVED; CATH IS INTACT; ALAN LEFT IN PLACE; DRAINED 300 ML OF YELLOW URINE. WILL CONTINUE TO MONITOR STATUS.
--- NOTE | 2019-11-25 18:25 | NUR ---
TRANSPORT IS HERE TO ALUMINUM POOL INSTALLER PT. PT IS CONFUSED MOST OF THE TIMES. NOT IN ANY DISTRESS. MULPTIPLE ATTEMPTS MADE TO INFORM GEETHA AT [facility] INFORM OF ALUMINUM POOL INSTALLER TIME BUT NO ONE IS PICKING UP.
== END 2019-11-25 18:35 | DRG 201 ==
LOC: ED 14:39 → DU 18:24 → MU 11-23 03:47
PROVIDERS: Emergency Medicine; ADMIT Internal Medicine; ATTEND Internal Medicine
DX: I48.91 Unspecified atrial fibrillation (principal); N17.0 Acute kidney failure with tubular necrosis; N18.3 Chronic kidney disease, stage 3 (moderate); F32.9 Major depressive disorder, single episode, unspecified; F41.9 Anxiety disorder, unspecified; I12.9 Hypertensive chronic kidney disease with stage 1 through stage 4 chronic kidney disease, or unspecified chronic kidney disease; R33.9 Retention of urine, unspecified; Z20.828 Contact with and (suspected) exposure to other viral communicable diseases; I42.9 Cardiomyopathy, unspecified; Z86.73 Personal history of transient ischemic attack (TIA), and cerebral infarction without residual deficits; Z82.49 Family history of ischemic heart disease and other diseases of the circulatory system; Z85.3 Personal history of malignant neoplasm of breast; Z90.12 Acquired absence of left breast and nipple; Z56.0 Unemployment, unspecified
CPT/HCPCS: 83880; 97110-GP; 97530-GP; G0378; G0480; J7042; J7060; J7070; Q0092; U0003-CS

== ENCOUNTER 2020-02-02 19:40 | Emergency (ER) | payer OTHER ==
[~2020-02-02] VITALS: Ht 157.5 cm; Wt 62.8 kg
[~2020-02-02 19:40] MED LIST changes: +ELIQUIS5 MG PO; +MEGESTROL AC40 MG/ML PO
[2020-02-02 19:51] VITALS: Ht 157.5 cm; Wt 62.8 kg
[2020-02-03 03:38] VITALS: BP 110/70
== END 2020-02-02 22:55 | disposition home or self-care (01) ==
LOC: ED 19:40
DX: N39.0 Urinary tract infection, site not specified (principal); I10 Essential (primary) hypertension; Z46.6 Encounter for fitting and adjustment of urinary device; Z85.3 Personal history of malignant neoplasm of breast; Z86.73 Personal history of transient ischemic attack (TIA), and cerebral infarction without residual deficits

== ENCOUNTER 2020-04-25 17:50 | Inpatient (IN) | payer OTHER, SELFPAY ==
[~2020-04-25] VITALS: Ht 162.6 cm; Wt 54.4 kg
[2020-04-25 17:51] VITALS: Ht 162.6 cm; Wt 54.4 kg
[2020-04-25 20:00] LABS: PLATELET COUNT 194 x10^3mcL (179-408)
[2020-04-25 20:01] LABS: BASOPHIL % 0.3 % (0.2-1.3)
[2020-04-25 20:05] LABS: rbc morphology (normal/abnorm) NORMAL (NORMAL)
[2020-04-25 20:17] LABS: CALCIUM 9.2 mg/dL (8.5-10.1); CARBON DIOXIDE 12.9 mmol/L (21-32); CHLORIDE SERUM 97 mmol/L (98-107); CREATININE SERUM 2.8 mg/dL (0.6-1.0); GFR1 18 mL/min; GLUCOSE SERUM 161 mg/dL (74-106); SODIUM SERUM 132 mmol/L (136-145)
[2020-04-25 20:21] LABS: ALBUMIN 3.8 g/dL (3.4-5.0); ALKALINE PHOSPHATASE 103 U/L (46-116); ALT/SGPT 466 U/L (14-59); AST/SGOT 426 U/L (15-37); BILIRUBIN TOTAL 1.8 mg/dL (0.20-1.00); C REACTIVE PROTEIN 3.2 mg/dL (<=0.9); LACTIC DEHYDROGENASE (LDH) 501 U/L (100-190); TOTAL PROTEIN, SERUM 7.3 g/dL (6.4-8.2)
[2020-04-25 23:21] LABS: CHOLESTEROL/HDL RATIO 3.8; MAGNESIUM 2.4 mg/dL (1.8-2.4); PHOSPHOROUS 6.4 mg/dL (2.5-4.9)
[2020-04-25 23:32] VITALS: BP 61/42
[2020-04-25 23:33] LABS: FREE T4 1.26 ng/dL (0.76-1.46); FREE THYROXINE INDEX 3.3 ug/dL (1.4-4.5); T4(THYROXINE) 8.4 ug/dL (4.7-13.3)
[2020-04-26 00:26] LABS: T3 TOTAL 0.37 ng/mL
[2020-04-26 05:45] VITALS: BP 0/0
== END 2020-04-26 01:32 | DRG 194 ==
LOC: ED 17:50 → DU 21:29
PROVIDERS: Emergency Medicine; ADMIT Internal Medicine; ATTEND Internal Medicine
PROC: 5A1935Z Respiratory Ventilation, Less than 24 Consecutive Hours (ICD-10-PCS; 2020-04-25)
PROC: 0BH17EZ Insertion of Endotracheal Airway into Trachea, Via Natural or Artificial Opening (ICD-10-PCS; 2020-04-25)
PROC: 5A12012 Performance of Cardiac Output, Single, Manual (ICD-10-PCS; principal; 2020-04-26)
DX: I11.0 Hypertensive heart disease with heart failure (principal); N17.0 Acute kidney failure with tubular necrosis; I46.9 Cardiac arrest, cause unspecified; G92 Toxic encephalopathy; E87.2 Acidosis; E86.0 Dehydration; I48.91 Unspecified atrial fibrillation; E87.1 Hypo-osmolality and hyponatremia; I50.43 Acute on chronic combined systolic (congestive) and diastolic (congestive) heart failure; F32.9 Major depressive disorder, single episode, unspecified; F41.9 Anxiety disorder, unspecified; I42.9 Cardiomyopathy, unspecified; Z20.828 Contact with and (suspected) exposure to other viral communicable diseases; R74.01 Elevation of levels of liver transaminase levels; Z85.3 Personal history of malignant neoplasm of breast; Z90.12 Acquired absence of left breast and nipple; Z86.73 Personal history of transient ischemic attack (TIA), and cerebral infarction without residual deficits; Z79.01 Long term (current) use of anticoagulants; Z82.49 Family history of ischemic heart disease and other diseases of the circulatory system; Z79.899 Other long term (current) drug therapy
CPT/HCPCS: 36600; 83880; 84439; 85378; 87804; G0378; J0456; J0696; J1100; J2370; J2405; J3010; J3490; J7030; J7050; U0003